=== PATIENT | male | born 1950 | race Caucasian/White ===

== ENCOUNTER 2021-12-14 11:09 | Emergency (ER) | payer MEDICARE ==
[~2021-12-14] VITALS: Ht 180.3 cm; Wt 79.5 kg
[2021-12-14 11:15] VITALS: BP 132/74
[2021-12-14] MEDS ORDERED: LIDOCAINE W/EPINEPHRINE 1% 20ML VIAL SC ONE (11:40)
[2021-12-14] MEDS ORDERED: CEPH500C PO (12:23)
[2021-12-14] MEDS ORDERED: BOOSTRIX/ADACEL VACCINE (DIPHTH/PERTUSS/ACELL/TETANUS) 0.5ML SYR IM ONE (12:25)
[2021-12-14] MEDS ORDERED: NEOSPORIN OINT 0.9 GM PKT TOP ONE (12:25)
[2021-12-14] MEDS ORDERED: BACI500O60 EX (12:26)
== END 2021-12-14 13:03 | disposition home or self-care (01) ==
LOC: M ED 11:09
DX: S51.811A Laceration without foreign body of right forearm, initial encounter (principal); W26.8XXA Contact with other sharp object(s), not elsewhere classified, initial encounter; Y92.9 Unspecified place or not applicable; Y93.9 Activity, unspecified; Y99.0 Civilian activity done for income or pay